=== PATIENT | female | born 1985 | race African-American/Black ===

== ENCOUNTER 2017-12-12 20:25 | Emergency (ER) | payer MEDICAID ==
[~2017-12-12] VITALS: Ht 172.7 cm; Wt 75.0 kg
[2017-12-12 20:57] VITALS: BP 116/77
== END 2017-12-12 23:55 | disposition left against medical advice (07) ==
LOC: ER 21:48
DX: K59.00 Constipation, unspecified (principal); Z53.21 Procedure and treatment not carried out due to patient leaving prior to being seen by health care provider